=== PATIENT | female | born 1955 | race Caucasian/White ===

== ENCOUNTER → 2021-07-21 | Outpatient (CLI) | payer BC, MEDICARE, SELFPAY ==
[~2021-07-21] MED LIST: CENTTAB47 PO; COUM2.5T17 PO; EPIT200T PO; ISOVUE-370 76% 100ML VIAL ONE; MAGN500C PO; SIMV10TA21 PO; TYLE325T5 PO; ULTR100T6 PO; ULTR50TA8 PO
== END ==
LOC: M PLAIMG 09:57
PROVIDERS: ATTEND Psychiatry & Neurology Neurology
DX: R51.9 Headache, unspecified (principal); Z53.9 Procedure and treatment not carried out, unspecified reason

== ENCOUNTER → 2021-10-13 | Outpatient (CLI) | payer BC ==
[~2021-10-13] MED LIST changes: +ADDE10CA3 PO; +ASPI81CH33 PO; +D-AMPHETAMINE; +DEPLCAP PO; +DESV50TA3; -ISOVUE-370 76% 100ML VIAL ONE; +METF-838; +MULT-90 PO; +PRAV20TA2; +RISE150T; +SUMA20SP4; +TAMO20TA8; +TAMO20TA8 PO; +TOPI50TA9; +VITA-298 PO; +XIID5DRO OP; +ZYRTTAB8 PO
== END ==
LOC: M WHC 07:45
PROVIDERS: ATTEND Nurse Practitioner Women's Health
DX: R59.9 Enlarged lymph nodes, unspecified (principal)

== ENCOUNTER → 2021-10-13 | Outpatient (CLI) | payer BC ==
[2021-10-13 09:59] VITALS: BP 116/76
== END ==
LOC: M WHCPRO 07:41
PROVIDERS: ATTEND Surgery
DX: D05.11 Intraductal carcinoma in situ of right breast (principal)
CPT/HCPCS: 19083; 77065; 88305; G0279

== ENCOUNTER → 2021-11-25 | Outpatient (CLI) | payer BC | LOC: M WHC 09:55 | PROVIDERS: ATTEND Nurse Practitioner Women's Health | DX: Z12.31 Encounter for screening mammogram for malignant neoplasm of breast (principal); Z95.0 Presence of cardiac pacemaker; R92.8 Other abnormal and inconclusive findings on diagnostic imaging of breast ==

== ENCOUNTER → 2021-12-08 | Outpatient (CLI) | payer BC ==
[2021-12-08 16:12] LABS: FREE T4 0.8 NG/DL (0.76-1.46); THYROID STIMULATING HORMONE 1.49 uIU/ML (0.358-3.740)
== END ==
LOC: M LAB 14:22
PROVIDERS: ATTEND Student in an Organized Health Care Education/Training Program
DX: E03.8 Other specified hypothyroidism (principal)

== ENCOUNTER → 2021-12-20 | Outpatient (CLI) | payer BC | LOC: M WHC 10:04 | PROVIDERS: ATTEND Internal Medicine Medical Oncology | DX: M81.0 Age-related osteoporosis without current pathological fracture (principal); M85.89 Other specified disorders of bone density and structure, multiple sites ==

== ENCOUNTER → 2022-01-24 | Outpatient (CLI) | payer BC ==
[~2022-01-24] MED LIST changes: +VITA-148 PO; -VITA-298 PO
[2022-01-24 18:27] LABS: FREE T4 1.01 NG/DL (0.89-1.76)
[2022-01-24 18:29] LABS: THYROID STIMULATING HORMONE 0.129 uIU/ML (0.55-4.78)
== END ==
LOC: M LAB 14:51
PROVIDERS: ATTEND Student in an Organized Health Care Education/Training Program
DX: E03.9 Hypothyroidism, unspecified (principal)

== ENCOUNTER → 2022-01-27 | Outpatient (REF) | payer BC | LOC: M LAB REF 16:18 → M SFHCDERM 16:18 | PROVIDERS: ATTEND Nurse Practitioner Family | DX: L30.9 Dermatitis, unspecified (principal) ==

== ENCOUNTER → 2022-03-08 | Outpatient (CLI) | payer BC | LOC: M WHC 09:54 | PROVIDERS: ATTEND Nurse Practitioner Women's Health | DX: Z08 Encounter for follow-up examination after completed treatment for malignant neoplasm (principal); Z85.3 Personal history of malignant neoplasm of breast; D24.1 Benign neoplasm of right breast; Z98.890 Other specified postprocedural states | CPT/HCPCS: 77065; G0279 ==

== ENCOUNTER → 2022-03-15 | Outpatient (CLI) | payer BC ==
[2022-03-15 12:37] LABS: THYROID STIMULATING HORMONE 8.519 uIU/ML (0.55-4.78)
[2022-03-15 12:42] LABS: FREE T4 0.83 NG/DL (0.89-1.76)
== END ==
LOC: M LAB 11:33
PROVIDERS: ATTEND Student in an Organized Health Care Education/Training Program
DX: E03.8 Other specified hypothyroidism (principal)

== ENCOUNTER → 2022-04-26 | Outpatient (CLI) | payer BC ==
[~2022-04-26] MED LIST changes: +TOPI-254; -TOPI50TA9
[2022-04-26 12:52] LABS: FREE T4 0.96 NG/DL (0.89-1.76); THYROID STIMULATING HORMONE 0.471 uIU/ML (0.55-4.78)
== END ==
LOC: M LAB 11:54
PROVIDERS: ATTEND Student in an Organized Health Care Education/Training Program
DX: E03.8 Other specified hypothyroidism (principal)

== ENCOUNTER → 2022-06-10 | Outpatient (CLI) | payer BC ==
[2022-06-10 16:22] LABS: FREE T4 1.01 NG/DL (0.89-1.76); THYROID STIMULATING HORMONE 1.731 uIU/ML (0.55-4.78)
[2022-06-10 18:01] LABS: HEMOGLOBIN A1c 5.9 % (4.0-6.0)
== END ==
LOC: M LAB 15:35
PROVIDERS: ATTEND Student in an Organized Health Care Education/Training Program
DX: R73.03 Prediabetes (principal); E03.8 Other specified hypothyroidism

== ENCOUNTER → 2022-07-22 | Outpatient (CLI) | payer BC ==
[2022-07-22 07:49] LABS: BASO # 0.1 10^3/uL (0.0-0.2); BASO % 0.9 % (0.0-1.0); EOS # 0.2 10^3/uL (0.0-0.5); EOS % 2.9 % (0.0-3.0); HEMOGLOBIN 12.7 g/dl (12.0-15.5); LYMPH # 3.1 10^3/uL (1.5-5.0); LYMPH % 48.1 % (24.0-44.0); MEAN CORPUSCULAR HEMOGLOBIN 30.7 pg (27.0-33.0); MEAN CORPUSCULAR HGB CONC 31.8 g/dl (32.0-36.5); MEAN CORPUSCULAR VOLUME 96.6 fl (80.0-96.0); MONO # 0.6 10^3/uL (0.0-0.8); MONO % 8.7 % (2.0-8.0); NEUTROPHILS # 2.6 10^3/uL (1.5-8.5); NEUTROPHILS % 39.1 % (36.0-66.0); PLATELET COUNT, AUTOMATED 178 10^3/uL (150-450); RED BLOOD COUNT 4.14 10^6/uL (4.00-5.40); WHITE BLOOD COUNT 6.5 10^3/uL (4.0-10.0)
[2022-07-22 08:23] LABS: ALBUMIN 3.6 G/DL (3.2-5.2); ALKALINE PHOSPHATASE 41 U/L (46-116); ALT/SGPT 25 U/L (7.0-40); AST/SGOT 14 U/L (<34); BILIRUBIN,TOTAL 0.2 MG/DL (0.3-1.2); BLOOD UREA NITROGEN 18 MG/DL (9-23); CALCIUM LEVEL 8.5 MG/DL (8.3-10.6); CARBON DIOXIDE LEVEL 24 MMOL/L (20-31); CHLORIDE LEVEL 112 MMOL/L (98-107); CHOLESTEROL LEVEL 185 MG/DL (<200); CHOLESTEROL RISK RATIO 3.91 (<5); CREATININE FOR GFR 0.93 MG/DL (0.55-1.30); GLOMERULAR FILTRATION RATE > 60.0 (>45); GLUCOSE, FASTING 111 MG/DL (74-106); HDL CHOLESTEROL 47.2 MG/DL (>40); NON-HDL-C 137.8 MG/DL; SODIUM LEVEL 144 MMOL/L (136-145); TOTAL PROTEIN 6.3 G/DL (5.7-8.2); TRIGLYCERIDES LEVEL 154 MG/DL (<150)
== END ==
LOC: M PLALAB 07:24 → M LAB 07:24
PROVIDERS: ATTEND Student in an Organized Health Care Education/Training Program
DX: Z00.00 Encounter for general adult medical examination without abnormal findings (principal); E78.5 Hyperlipidemia, unspecified

== ENCOUNTER 2022-10-10 16:17 | Emergency (ER) | payer BC ==
[~2022-10-10] VITALS: Ht 167.6 cm; Wt 80.3 kg
[2022-10-10] MEDS ORDERED: SYNT125T PO (16:44)
[2022-10-10 18:18] LABS: BASO % 0.5 % (0.0-1.0); EOS # 0.2 10^3/uL (0.0-0.5); EOS % 2.6 % (0.0-3.0); HEMATOCRIT 39.3 % (36.0-47.0); HEMOGLOBIN 12.5 g/dl (12.0-15.5); LYMPH # 2.8 10^3/uL (1.5-5.0); MEAN CORPUSCULAR HEMOGLOBIN 30.8 pg (27.0-33.0); MEAN CORPUSCULAR HGB CONC 31.8 g/dl (32.0-36.5); MEAN CORPUSCULAR VOLUME 96.8 fl (80.0-96.0); MONO # 0.5 10^3/uL (0.0-0.8); NEUTROPHILS # 3.1 10^3/uL (1.5-8.5); NEUTROPHILS % 47.6 % (36.0-66.0); PLATELET COUNT, AUTOMATED 192 10^3/uL (150-450); RED BLOOD COUNT 4.06 10^6/uL (4.00-5.40); WHITE BLOOD COUNT 6.6 10^3/uL (4.0-10.0)
[2022-10-10 18:39] LABS: ALBUMIN 3.5 G/DL (3.2-5.2); BILIRUBIN,TOTAL 0.2 MG/DL (0.3-1.2); CALCIUM LEVEL 9.2 MG/DL (8.3-10.6); CREATININE FOR GFR 1.02 MG/DL (0.55-1.30); GLOMERULAR FILTRATION RATE 57.9 (>45); POTASSIUM SERUM 3.7 MMOL/L (3.5-5.1); TOTAL PROTEIN 6.6 G/DL (5.7-8.2)
[2022-10-10] MEDS ORDERED: ISOVUE-370 76% 100ML VIAL As Ordered ONE ×2 (22:30→22:33)
[2022-10-10 23:05] LABS: FREE T4 0.99 NG/DL (0.89-1.76); THYROID STIMULATING HORMONE 2.083 uIU/ML (0.55-4.78)
[2022-10-11 00:32] VITALS: BP 138/88; TEMP 98.1; O2SAT 97
== END 2022-10-11 01:13 | disposition home or self-care (01) ==
LOC: M ED 16:17
DX: R42 Dizziness and giddiness (principal); I10 Essential (primary) hypertension; R56.9 Unspecified convulsions; E06.3 Autoimmune thyroiditis; Z95.0 Presence of cardiac pacemaker
CPT/HCPCS: 36415; 70450; 70496; 70498; 80053; 84439; 84443; 85025; 93005; 99284; Q9967

== ENCOUNTER → 2022-10-18 | Outpatient (CLI) | payer BC ==
[~2022-10-18] MED LIST changes: +SYNT125T PO
[2022-10-18 11:01] LABS: ALBUMIN 3.5 G/DL (3.2-5.2); ALKALINE PHOSPHATASE 40 U/L (46-116); ALT/SGPT 23 U/L (7.0-40); AST/SGOT 10 U/L (<34); BILIRUBIN,TOTAL 0.2 MG/DL (0.3-1.2); BLOOD UREA NITROGEN 17 MG/DL (9-23); CALCIUM LEVEL 8.7 MG/DL (8.3-10.6); CARBON DIOXIDE LEVEL 25 MMOL/L (20-31); CHLORIDE LEVEL 110 MMOL/L (98-107); CREATININE FOR GFR 0.97 MG/DL (0.55-1.30); FOLATE > 24.0 NG/ML (>5.4); GLOMERULAR FILTRATION RATE > 60.0 (>45); GLUCOSE, FASTING 115 MG/DL (74-106); POTASSIUM SERUM 3.9 MMOL/L (3.5-5.1); SODIUM LEVEL 144 MMOL/L (136-145); TOTAL PROTEIN 6.5 G/DL (5.7-8.2)
[2022-10-18 11:02] LABS: VITAMIN B12 LEVEL 384 PG/ML (211-911)
== END ==
LOC: M LAB 09:58
PROVIDERS: ATTEND Student in an Organized Health Care Education/Training Program
DX: E53.8 Deficiency of other specified B group vitamins (principal); R42 Dizziness and giddiness

== ENCOUNTER → 2022-10-27 | Outpatient (CLI) | payer BC | LOC: M RAD 08:04 | PROVIDERS: ATTEND Internal Medicine Medical Oncology | DX: M54.50 Low back pain, unspecified (principal); C50.919 Malignant neoplasm of unspecified site of unspecified female breast | CPT/HCPCS: 78306; A9503 ==

== ENCOUNTER 2022-10-28 12:51 | Day surgery (SDC) | payer BC ==
[~2022-10-28] VITALS: Ht 167.6 cm; Wt 81.0 kg
[~2022-10-28 12:51] MED LIST changes: +LIDOCAINE 1% SDV 30ML VIAL As Ordered ONE; +ceFAZolin SOD 2 GM in IV 1 EA IV ONE
[2022-10-28] MEDS ORDERED: LR 1,000 ML IV SCH (13:00)
[2022-10-28] MEDS ORDERED: propofoL 200 MG/20 ML VIAL As Ordered ONE ×2 (13:31→13:32)
[2022-10-28] MEDS ORDERED: ONDANSETRON 4MG 2ML VIAL As Ordered ONE (13:31)
[2022-10-28] MEDS ORDERED: LIDOCAINE 2% 100MG/5ML SDV (FOR ANES.) As Ordered ONE (13:32)
[2022-10-28] MEDS ORDERED: MIDAZOLAM INJ 2MG/2ML VIAL As Ordered ONE (13:41)
[2022-10-28] MEDS ORDERED: fentaNYL 100 MCG/2 ML INJECTION As Ordered ONE (13:41)
[2022-10-28 16:15] VITALS: BP 106/67; TEMP 97.5; O2SAT 98
[2022-11-03] MEDS ORDERED: TAMO20TA8 PO (14:12)
== END 2022-10-28 16:26 | disposition home or self-care (01) ==
LOC: M SDC 12:51
PROVIDERS: ATTEND Internal Medicine Cardiovascular Disease
DX: T82.111A Breakdown (mechanical) of cardiac pulse generator (battery), initial encounter (principal); Z47.2 Encounter for removal of internal fixation device; I48.0 Paroxysmal atrial fibrillation; E78.5 Hyperlipidemia, unspecified; E11.9 Type 2 diabetes mellitus without complications; G47.33 Obstructive sleep apnea (adult) (pediatric); E66.3 Overweight; Z85.3 Personal history of malignant neoplasm of breast; F90.9 Attention-deficit hyperactivity disorder, unspecified type; E03.9 Hypothyroidism, unspecified; M81.0 Age-related osteoporosis without current pathological fracture; F41.9 Anxiety disorder, unspecified; F32.A Depression, unspecified; Z79.82 Long term (current) use of aspirin; Z79.899 Other long term (current) drug therapy
CPT/HCPCS: 33228; C1785; J0690; J2250; J2405; J3010

== ENCOUNTER → 2022-11-28 | Outpatient (CLI) | payer BC ==
[~2022-11-28] MED LIST changes: -LIDOCAINE 1% SDV 30ML VIAL As Ordered ONE; -ceFAZolin SOD 2 GM in IV 1 EA IV ONE
== END ==
LOC: M WHC 14:22
PROVIDERS: ATTEND Nurse Practitioner Women's Health
DX: Z85.3 Personal history of malignant neoplasm of breast (principal); Z98.890 Other specified postprocedural states
CPT/HCPCS: 77066; G0279

== ENCOUNTER → 2022-12-20 | Outpatient (CLI) | payer BC | LOC: M LAB 10:44 | PROVIDERS: ATTEND Physician Assistant | DX: E03.8 Other specified hypothyroidism (principal) ==

== ENCOUNTER → 2022-12-27 | Outpatient (CLI) | payer BC ==
[2022-12-27 10:22] LABS: BASO % 0.4 % (0.0-1.0); EOS # 0.2 10^3/uL (0.0-0.5); EOS % 2.7 % (0.0-3.0); HEMATOCRIT 40.7 % (36.0-47.0); HEMOGLOBIN 13.1 g/dl (12.0-15.5); LYMPH # 3.1 10^3/uL (1.5-5.0); MEAN CORPUSCULAR HEMOGLOBIN 31.1 pg (27.0-33.0); MEAN CORPUSCULAR HGB CONC 32.2 g/dl (32.0-36.5); MEAN CORPUSCULAR VOLUME 96.7 fl (80.0-96.0); MONO # 0.5 10^3/uL (0.0-0.8); MONO % 6.3 % (2.0-8.0); NEUTROPHILS # 4.5 10^3/uL (1.5-8.5); NEUTROPHILS % 53.4 % (36.0-66.0); PLATELET COUNT, AUTOMATED 163 10^3/uL (150-450); RED BLOOD COUNT 4.21 10^6/uL (4.00-5.40); WHITE BLOOD COUNT 8.5 10^3/uL (4.0-10.0)
[2022-12-27 10:36] LABS: HEMOGLOBIN A1c 5.8 % (4.0-6.0)
[2022-12-27 11:21] LABS: ALBUMIN 3.5 G/DL (3.2-5.2); ALKALINE PHOSPHATASE 45 U/L (46-116); ALT/SGPT 25 U/L (7.0-40); AST/SGOT 17 U/L (<34); BILIRUBIN,TOTAL 0.4 MG/DL (0.3-1.2); BLOOD UREA NITROGEN 16 MG/DL (9-23); CALCIUM LEVEL 8.9 MG/DL (8.3-10.6); CARBON DIOXIDE LEVEL 25 MMOL/L (20-31); CHLORIDE LEVEL 107 MMOL/L (98-107); CHOLESTEROL LEVEL 232 MG/DL (<200); CHOLESTEROL RISK RATIO 4.73 (<5); CREATININE FOR GFR 0.93 MG/DL (0.55-1.30); FOLATE > 24.0 NG/ML (>5.4); GLOMERULAR FILTRATION RATE > 60.0 (>45); GLUCOSE, FASTING 101 MG/DL (74-106); LDL CHOLESTEROL 127.2 MG/DL (<100); POTASSIUM SERUM 3.8 MMOL/L (3.5-5.1); SODIUM LEVEL 142 MMOL/L (136-145); TOTAL 25(OH) VITAMIN D 26.8 NG/ML (20.0-100.0); TOTAL PROTEIN 6.6 G/DL (5.7-8.2); TRIGLYCERIDES LEVEL 279 MG/DL (<150)
[2022-12-27 12:06] LABS: VITAMIN B12 LEVEL 753 PG/ML (211-911)
== END ==
LOC: M LAB 09:18
PROVIDERS: ATTEND Family Medicine
DX: R53.83 Other fatigue (principal); E66.3 Overweight

== ENCOUNTER → 2022-12-28 | Outpatient (CLI) | payer BC | LOC: M WUC 15:14 | PROVIDERS: ATTEND Physician Assistant | DX: M79.671 Pain in right foot (principal); M19.071 Primary osteoarthritis, right ankle and foot ==

== ENCOUNTER → 2023-03-14 | Outpatient (CLI) | payer BC ==
[~2023-03-14] MED LIST changes: +TOPI-21; -TOPI-254
[2023-03-14 11:18] LABS: FREE T4 1.02 NG/DL (0.89-1.76)
[2023-03-14 11:19] LABS: THYROID STIMULATING HORMONE 2.956 uIU/ML (0.55-4.78)
== END ==
LOC: M LAB 09:59
PROVIDERS: ATTEND Physician Assistant
DX: R53.83 Other fatigue (principal); F32.2 Major depressive disorder, single episode, severe without psychotic features

== ENCOUNTER → 2023-03-24 | Outpatient (REF) | payer BC | LOC: M SFHCDERM 17:42 | PROVIDERS: ATTEND Nurse Practitioner Family | DX: D49.2 Neoplasm of unspecified behavior of bone, soft tissue, and skin (principal); L57.8 Other skin changes due to chronic exposure to nonionizing radiation; L57.0 Actinic keratosis ==

== ENCOUNTER → 2023-04-06 | Outpatient (REF) | payer BC | LOC: M SFHCDERM 17:39 | PROVIDERS: ATTEND Nurse Practitioner Family | DX: Z51.89 Encounter for other specified aftercare (principal) ==

== ENCOUNTER → 2023-06-23 | Outpatient (CLI) | payer BC ==
[2023-06-23 11:20] LABS: BASO % 0.5 % (0.0-1.0); EOS # 0.2 10^3/uL (0.0-0.5); EOS % 3.2 % (0.0-3.0); HEMATOCRIT 39.8 % (36.0-47.0); HEMOGLOBIN 12.8 g/dl (12.0-15.5); LYMPH # 2.9 10^3/uL (1.5-5.0); MEAN CORPUSCULAR HEMOGLOBIN 31.5 pg (27.0-33.0); MEAN CORPUSCULAR HGB CONC 32.2 g/dl (32.0-36.5); MONO # 0.4 10^3/uL (0.0-0.8); MONO % 6.4 % (2.0-8.0); NEUTROPHILS % 45.6 % (36.0-66.0); PLATELET COUNT, AUTOMATED 178 10^3/uL (150-450); RED BLOOD COUNT 4.06 10^6/uL (4.00-5.40); WHITE BLOOD COUNT 6.6 10^3/uL (4.0-10.0)
[2023-06-23 11:22] LABS: APPEARANCE, URINE CLEAR (CLEAR); BACTERIA, URINE AUTO NEGATIVE (NEGATIVE); BILIRUBIN, URINE AUTO NEGATIVE (NEGATIVE); BLOOD, URINE BLOOD NEGATIVE (NEGATIVE); COLOR, URINE STRAW (YELLOW); GLUCOSE, URINE (UA) AUTO NEGATIVE (NEGATIVE); KETONE, URINE AUTO NEGATIVE (NEGATIVE); LEUKOCYTE ESTERASE, URINE AUTO NEGATIVE (NEGATIVE); NITRITE, URINE AUTO NEGATIVE (NEGATIVE); PROTEIN, URINE AUTO NEGATIVE (NEGATIVE); RBC, URINE AUTO 0 /HPF (0-3); SPECIFIC GRAVITY URINE AUTO 1.003 (1.002-1.035); SQUAMOUS EPITHELIAL CELL UR AU 0 /HPF (0-6); UROBILINOGEN, URINE AUTO 0.2 mg/dL (0.0-2.0); WBC, URINE AUTO 0 /HPF (0-3)
[2023-06-23 11:50] LABS: ALBUMIN 3.7 G/DL (3.2-5.2); ALKALINE PHOSPHATASE 49 U/L (46-116); ALT/SGPT 30 U/L (7.0-40); AST/SGOT 17 U/L (<34); BILIRUBIN,TOTAL 0.4 MG/DL (0.3-1.2); BLOOD UREA NITROGEN 15 MG/DL (9-23); CALCIUM LEVEL 9.5 MG/DL (8.3-10.6); CARBON DIOXIDE LEVEL 28 MMOL/L (20-31); CHLORIDE LEVEL 105 MMOL/L (98-107); CREATININE FOR GFR 0.77 MG/DL (0.55-1.30); GLOMERULAR FILTRATION RATE > 60.0 (>45); GLUCOSE, FASTING 120 MG/DL (74-106); MAGNESIUM LEVEL 2.3 MG/DL (1.8-2.4); POTASSIUM SERUM 3.9 MMOL/L (3.5-5.1); SODIUM LEVEL 141 MMOL/L (136-145); TOTAL PROTEIN 6.7 G/DL (5.7-8.2)
[2023-06-23 11:51] LABS: FREE T4 1.02 NG/DL (0.89-1.76); THYROID STIMULATING HORMONE 5.107 uIU/ML (0.55-4.78)
== END ==
LOC: M LAB 10:44
PROVIDERS: ATTEND Physician Assistant
DX: E03.9 Hypothyroidism, unspecified (principal)

== ENCOUNTER → 2023-06-28 | Outpatient (REF) | payer BC | LOC: M SFHCDERM 12:32 | PROVIDERS: ATTEND Nurse Practitioner Family | DX: R23.8 Other skin changes (principal) ==

== ENCOUNTER → 2023-07-06 | Outpatient (CLI) | payer BC ==
[2023-07-06 13:03] LABS: URIC ACID 5.2 MG/DL (3.1-7.8)
[2023-07-06 13:05] LABS: C REACTIVE PROTEIN QUANTITATIV < 0.40 MG/DL (<1.0)
[2023-07-06 13:06] LABS: RHEUMATOID FACTOR QUANT 7.1 IU/ML (<14)
[2023-07-06 13:07] LABS: VITAMIN B12 LEVEL 1695 PG/ML (211-911)
[2023-07-06 13:08] LABS: FOLATE > 24.0 NG/ML (>5.4); TOTAL 25(OH) VITAMIN D 43.4 NG/ML (20.0-100.0)
[2023-07-07 23:08] LABS: ANA (HEP2) Negative (.); CYCLIC CITRULLINATED PEPTIDE 6 units (0-19); SSA SJOGRENS A <0.2 AI (0.0-0.9); SSB SJOGRENS B <0.2 AI (0.0-0.9)
== END ==
LOC: M EKG 10:33
PROVIDERS: ATTEND Physician Assistant
DX: R00.2 Palpitations (principal); R53.83 Other fatigue; E03.9 Hypothyroidism, unspecified